=== PATIENT | male | born 1995 | race Caucasian/White ===

== ENCOUNTER 2022-06-18 16:42 | Emergency (ER) | payer OTHER, SELFPAY ==
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
[2022-06-18 16:55] VITALS: BP 116/61; PULSE 73; RESP 16; TEMP 37.1; O2SAT 97
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
== END 2022-06-18 17:49 | disposition home or self-care (01) ==
PROVIDERS: Emergency Provider Nurse Practitioner Family
DX: S63.92XA Sprain of unspecified part of left wrist and hand, initial encounter (principal); V18.4XXA Pedal cycle driver injured in noncollision transport accident in traffic accident, initial encounter
CPT/HCPCS: 73130; 99213; G0463

== ENCOUNTER 2024-06-25 12:05 | Emergency (ER) | payer BC, SELFPAY ==
[2024-06-25 12:14] VITALS: BP 131/79; PULSE 88; RESP 16; TEMP 36.6; O2SAT 100
--- NOTE | 2024-06-25 12:34 | ED.EAR ---
HPI - Ear Problem General Chief complaint: Ear Stated complaint: Left Ear Pain Time Seen by Provider: 06/25/24 12:21 Source: patient and RN notes reviewed Mode of arrival: ambulatory Limitations: no limitations History of Present Illness HPI Narrative: Patient presents today with a 3 day history of bilateral ear pain and left ear muffling, left greater than right. He has tried some lidocaine ear drops, Tylenol, ibuprofen, and some Sudafed without relief of symptoms. 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 No additional cold symptoms. Related Data Allergies Allergy/AdvReac Type Severity Reaction Status Date / Time METAL DENTAL FILLINGS AdvReac Other Uncoded 06/18/22 17:02 Review of Systems Review of Systems: CONSTITUTIONAL: Denies body aches, fever, chills, or sweats. EYES: Denies visual changes, redness, or discharge. ENT: Denies rhinorrhea, congestion, sore throat. + ear pain and muffling CARDIOVASCULAR: Denies chest pain, palpitations, or edema. RESPIRATORY: Denies cough or dyspnea. GASTROINTESTINAL: Denies abdominal pain, nausea, vomiting, or diarrhea. GENITOURINARY: Denies dysuria or hematuria. SKIN: Denies rash, itching, or wounds. MUSCULOSKELETAL: Denies back pain, joint pain, or myalgia. NEUROLOGIC: Denies headache, numbness, tingling, or weakness. PSYCH: Denies depression or anxiety. PMFSH Comments At time of signature, I have reviewed and agree with nursing past medical, surgical, social and family history unless otherwise noted. Please see nursing chart for further information. There is no relevant family history pertinent to the presenting complaint Exam Narrative: GENERAL: Well-appearing, well-nourished, and in no acute distress. HEAD: Normocephalic, atraumatic. EYES: EOMI. No redness or drainage. Conjunctivae normal. ENT: Mucous membranes pink and moist. Nares clear. No rhinorrhea. Bilateral ear canals are erythematous and moderately edematous with small amount of white material in the canal. The visualized portion of the bilateral TMs are normal. Bilateral tragal and movement tenderness, worse on the left. No mastoid tenderness noted. No external swelling or erythema noted. No drainage noted. NECK: Normal AROM. CHEST: No respiratory distress. EXTREMITIES: Normal range of motion. No edema. SKIN: Warm, dry, no rash. Capillary refill normal. Normal skin turgor. NEURO: No focal deficits. Alert and oriented x3. Gait steady. PSYCH: Normal affect. No signs of depression or anxiety. Course Course Level of Care: Express Care Visit Vital Signs Vital signs: Vital Signs Temperature 97.8 F 06/25/24 12:14 Pulse Rate 88 06/25/24 12:14 Respiratory Rate 16 06/25/24 12:14 Blood Pressure 131/79 06/25/24 12:14 Pulse Oximetry 100 06/25/24 12:14 Oxygen Delivery Room Air 06/25/24 12:14 Temperature 97.8 F 06/25/24 12:14 Pulse Rate 88 06/25/24 12:14 Respiratory Rate 16 06/25/24 12:14 Blood Pressure 131/79 06/25/24 12:14 Pulse Oximetry 100 06/25/24 12:14 Oxygen Delivery Room Air 06/25/24 12:14 Reviewed Medical Decision Making MDM Narrative Medical decision making narrative: Patient has been diagnosed with bilateral otitis externa and educated on and ear drop use as well as other anticipatory guidance. Prescription for Ciprodex sent to pharmacy. Differential Diagnosis Differential Diagnosis: Otitis media, otitis externa, ruptured TM, serous otitis, cerumen impaction Vital Signs Vital Signs: Vital Signs Temperature 97.8 F 06/25/24 12:14 Pulse Rate 88 06/25/24 12:14 Respiratory Rate 16 06/25/24 12:14 Blood Pressure 131/79 06/25/24 12:14 Pulse Oximetry 100 06/25/24 12:14 Oxygen Delivery Room Air 06/25/24 12:14 Temperature 97.8 F 06/25/24 12:14 Pulse Rate 88 06/25/24 12:14 Respiratory Rate 16 06/25/24 12:14 Blood Pressure 131/79 06/25/24 12:14 Pulse Oximetry 100
== END 2024-06-25 12:46 | disposition home or self-care (01) ==
PROVIDERS: Emergency Provider Nurse Practitioner
DX: H60.503 Unspecified acute noninfective otitis externa, bilateral (principal)
CPT/HCPCS: 99213; G0463